=== PATIENT | female | born 1930 | race Caucasian/White ===

== ENCOUNTER 2016-07-30 14:23 | Outpatient (CLI) | payer MEDICARE, BC ==
--- NOTE | 2016-07-30 16:27 | RAD ---
LEFT KNEE AP VIEW ONLY RIGHT KNEE AP VIEW ONLY: 07/30/16 Single AP view of the left knee an the right knee is performed. No additional lateral or oblique vie ws were performed. Left total knee arthroplasty changes are noted without dislocation or periprosthetic fracture as ev aluated on this single AP view. 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 IMPRESSION: Limited AP one view only exam of the left knee showing a total knee arthroplasty without dislocation or periprosthetic fracture. Right knee joint space loss involving both the medial and lateral susi rtment of the right knee. POS: [facility]
== END 2016-07-30 14:24 | disposition home or self-care (01) ==
LOC: BURRAD 14:23
PROVIDERS: ATTEND Family Medicine
DX: M23.91 Unspecified internal derangement of right knee (principal); M25.562 Pain in left knee; Z96.652 Presence of left artificial knee joint
CPT/HCPCS: 73565

== ENCOUNTER 2016-09-11 13:39 | Outpatient (CLI) | payer MEDICARE, BC ==
--- NOTE | 2016-09-11 19:52 | RAD ---
ABDOMEN 09/11/16 Supine and erect films are compared with a 09/04/15 study done at [facility]. The gas pattern is nonspecific with gas seen in nondistended large and small bowel. I would note chuy t there seems to be a few more small bowel loops in the right flank than I would expect. 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 The amount of fecal material in the colon is moderate bu t there are no obstructive findings. No free air was seen. No calcifications of great concern were n oted. There is some calcification of the abdominal aorta itself. Degenerative changes are seen in ea ch hip joint. IMPRESSION: Mild constipation with nonspecific findings. See comments above. POS: HOME
== END 2016-09-11 13:40 | disposition home or self-care (01) ==
LOC: BURRAD 13:39
PROVIDERS: ATTEND Family Medicine
DX: K59.01 Slow transit constipation (principal); K57.30 Diverticulosis of large intestine without perforation or abscess without bleeding
CPT/HCPCS: 74020

== ENCOUNTER 2017-01-01 14:25 | Outpatient (CLI) | payer MEDICARE, BC ==
--- NOTE | 2017-01-01 17:08 | RAD ---
TWO VIEWS CHEST INDICATION: Shortness of breath. FINDINGS: No new consolidation, effusion, or pneumothorax. Cardiomediastinal silhouette is stable. There has been no significant interval change. IMPRESSION: Stable exam. POS: [facility]
--- NOTE | 2017-01-01 17:21 | RAD ---
LUMBAR SPINE TWO VIEWS 01/01/17 HISTORY: Low back pain. FINDINGS: There are five lumbar type vertebrae. Pedicles are intact. Vertebral body heights are maintained. Gr ramya I degenerative spondylolisthesis and disc space narrowing are apparent at the L4-5 level. Osteop hytosis is present throughout the vertebral bodies and facets. No acute fracture or dislocation are apparent. There are degenerative changes throughout the thoracic spine. There is calcification of th e arterial structures. IMPRESSION: 1. Lumbar spondylosis. No evidence of compression fracture. 2. Atherosclerosis. POS: [facility]
== END 2017-01-01 14:26 | disposition home or self-care (01) ==
LOC: BURRAD 14:25
PROVIDERS: ATTEND Family Medicine
DX: S22.000A Wedge compression fracture of unspecified thoracic vertebra, initial encounter for closed fracture (principal); R06.02 Shortness of breath; M54.6 Pain in thoracic spine; M47.816 Spondylosis without myelopathy or radiculopathy, lumbar region; I70.90 Unspecified atherosclerosis
CPT/HCPCS: 71020; 72080

== ENCOUNTER 2017-03-29 14:11 | Emergency (ER) | payer MEDICARE, BC ==
[2017-03-29 14:44] LABS: Bilirubin Negative (Negative); Blood, Urine Trace (Negative); Clarity Slightly Cloudy (Clear); Glucose, Urine (Dipstick) Negative (Negative); Leukocyte Small (Negative); Nitrite Negative (Negative); Protein, Urine (Dipstick) 30 mg/dL (Neg-Trace); Urobilinogen 0.2 mg/dL (0.2-1.0)
[2017-03-29 14:58] LABS: Bacteria/HPF 1+ HPF (None Seen); Crystals/HPF None Seen HPF (Negative); Hyaline Casts/LPF NONE SEEN LPF (0-3 Hyaline); Other Casts/LPF None Seen LPF (0-3 Hyaline); Oval Fat Bodies/HPF None Seen HPF (None Seen); RBC/HPF 0-3 HPF (0-3); Renal Epithelial None Seen HPF (0-3); Sperm/HPF None Seen HPF (None Seen); Squamous Epithelial 0-3 HPF (0-3); Transitional Epithelial NONE SEEN HPF (0-3); Trichomonas/HPF None Seen HPF (None Seen); Yeast-All Forms None Seen HPF (None Seen)
[2017-03-29] MEDS ORDERED: cefTRIAXone\\ROCEPHIN 1 GM VIAL ONE (15:13)
== END 2017-03-29 15:55 | disposition home or self-care (01) ==
LOC: BURERS 14:11
DX: N30.00 Acute cystitis without hematuria (principal); R19.7 Diarrhea, unspecified; M40.209 Unspecified kyphosis, site unspecified; M48.02 Spinal stenosis, cervical region; M19.90 Unspecified osteoarthritis, unspecified site; M06.9 Rheumatoid arthritis, unspecified; K21.9 Gastro-esophageal reflux disease without esophagitis; G62.9 Polyneuropathy, unspecified; Z87.891 Personal history of nicotine dependence
CPT/HCPCS: 81003; 81015; 87086; 96372; J0696

== ENCOUNTER 2017-04-21 18:34 | Emergency (ER) | payer MEDICARE, BC ==
[2017-04-21] MEDS ORDERED: Potassium Chloride 20 MEQ/100 ML PREMIX BAG ONE (19:14)
[2017-04-21 19:18] LABS: ALT (SGPT) 17 U/L (8-55); AST (SGOT) 38 U/L (5-34); Albumin 3.6 g/dL (3.4-4.8); Alkaline Phosphatase 63 U/L (40-150); Anion Gap 15 mmol/L (10-20); BUN (Urea Nitrogen) 16 mg/dL (9.8-20.1); Bilirubin, Total 0.3 mg/dL (0.2-1.2); Calc. Creatinine Clearance 0 mL/min (70-130); Calcium 9.7 mg/dL (7.8-10.44); Carbon Dioxide 32 mmol/L (23-31); Chloride 90 mmol/L (98-107); Estimated GFR-MDRD 48; Globulin 3.1 g/dL (2.4-3.5); Glucose 129 mg/dL (83-110); Protein, Total 6.7 g/dL (6.0-8.3); Sodium 134 mmol/L (136-145)
[2017-04-21 19:20] LABS: Troponin I 0.038 ng/mL (< 0.028)
[2017-04-21 19:22] LABS: Eosinophils 3 % (0-10); Hemoglobin 10.6 g/dL (12.0-16.0); Lymphocytes 42 % (21-51); MDiff Complete? YES; Mean Corpuscular HGB CONC 34.4 g/dL (32.0-36.0); Mean Corpuscular Hemoglobin 31.8 pg (27.0-31.0); Mean Corpuscular Volume 92.7 fl (81.0-99.0); Mean Platelet Volume 5.8 fL (7.4-10.4); Monocytes 11 % (0-10); Neutrophil 44 % (42-75); Platelet Count 320 thou/uL (130-400); RBC Distribution Width 11.3 % (11.5-14.5); Red Blood Cell (RBC) Count 3.32 mill/uL (4.20-5.40); White Blood Cell (WBC) Count 5.8 thou/uL (4.8-10.8)
[2017-04-21] MEDS ORDERED: Potassium Chloride 20 MEQ TAB ONE (19:26)
[2017-04-21 19:29] LABS: Bilirubin Negative (Negative); Blood, Urine Negative (Negative); Clarity Clear (Clear); Glucose, Urine (Dipstick) Negative (Negative); Leukocyte Trace (Negative); Nitrite Negative (Negative); Protein, Urine (Dipstick) Negative (Neg-Trace); Specific Gravity, Urine 1.015 (1.005-1.030); Urobilinogen 0.2 mg/dL (0.2-1.0); pH, Urine 7.5 (5.0-9.0)
[2017-04-21] MEDS ORDERED: NS 0.9% w/ 20 MEQ KCL 1,000 ML IV SCH (19:30)
[2017-04-21 19:32] LABS: Bacteria/HPF Rare-Few HPF (None Seen); RBC/HPF 0-3 HPF (0-3); Squamous Epithelial 0-3 HPF (0-3); WBC/HPF 0-3 HPF (0-3)
--- NOTE | 2017-04-21 19:45 | RAD ---
PORTABLE CHEST 04/21/17 An AP portable film at 1842 is compared with an 01/01/17 study. The heart is normal in size and the lungs are clear. No acute infiltrate or effusion was seen. Slight deviation of the trachea towards the right is due to crossing the aortic arch and due to her being t urned slightly. There are no effusions, IMPRESSION: No acute thoracic finding. POS: HOME
== END 2017-04-21 20:01 | disposition home or self-care (01) ==
LOC: BURERS 18:34
DX: E87.6 Hypokalemia (principal); E87.1 Hypo-osmolality and hyponatremia; M19.90 Unspecified osteoarthritis, unspecified site; M06.9 Rheumatoid arthritis, unspecified; I50.9 Heart failure, unspecified; K21.9 Gastro-esophageal reflux disease without esophagitis; Z87.891 Personal history of nicotine dependence; Z79.899 Other long term (current) drug therapy; Z79.891 Long term (current) use of opiate analgesic
CPT/HCPCS: 36415; 71045; 80053; 81003; 81015; 82553; 83880; 84484; 85025; 93005; 96365; J3480

== ENCOUNTER 2018-05-25 22:42 | Emergency (ER) | payer MEDICARE, BC ==
[2018-05-25] MEDS ORDERED: Cephalexin 500 MG CAP ONE (23:14)
[2018-05-25] MEDS ORDERED: Bacitracin Zinc 1 Packet ONE ×2 (23:15→23:36)
[2018-05-25] MEDS ORDERED: Adacel (T-DAP) 0.5 ML SYRINGE ONE (23:17)
--- NOTE | 2018-05-26 08:06 | RAD ---
RIGHT FOOT THREE VIEWS: Date: 05-25-18 FINDINGS: A fracture is present at the base of the proximal phalanx of the great toe. There is no significant d isplacement. The bones are osteoporotic. The remainder of the foot appeared intact. Hammertoe deformi ties are present. IMPRESSION: Fracture at the base of the proximal phalanx of the great toe. Code T POS: HOME
== END 2018-05-25 23:35 | disposition home or self-care (01) ==
LOC: BURERS 22:42
DX: S92.414A Nondisplaced fracture of proximal phalanx of right great toe, initial encounter for closed fracture (principal); K21.9 Gastro-esophageal reflux disease without esophagitis; I50.9 Heart failure, unspecified; Z87.891 Personal history of nicotine dependence; Z79.899 Other long term (current) drug therapy; W18.30XA Fall on same level, unspecified, initial encounter
CPT/HCPCS: 90471; 90715

== ENCOUNTER 2020-03-22 15:42 | Emergency (ER) | payer MEDICARE, BC ==
[2020-03-22] MEDS ORDERED: traMADol HCl 50 MG TAB ONE (17:04)
--- NOTE | 2020-03-22 17:49 | RAD ---
PORTABLE CHEST: 03/22/20 An AP view at 1630 is compared with a 04/21/17 study. The heart is normal in size. There is no vascul ar congestion or edema. No lobar infiltrate, effusion, or pneumothorax was seen. No gross fracture wa s identified, though subtle rib fractures would be missed IMPRESSION: No acute thoracic finding. POS: HOME
== END 2020-03-22 17:10 | disposition home or self-care (01) ==
LOC: BURERS 15:42
DX: S22.31XA Fracture of one rib, right side, initial encounter for closed fracture (principal); K21.9 Gastro-esophageal reflux disease without esophagitis; I50.9 Heart failure, unspecified; M06.9 Rheumatoid arthritis, unspecified; Z87.891 Personal history of nicotine dependence; Z79.899 Other long term (current) drug therapy; W19.XXXA Unspecified fall, initial encounter
CPT/HCPCS: 71045

== ENCOUNTER 2020-04-10 14:50 | Outpatient (CLI) | payer MEDICARE, BC ==
--- NOTE | 2020-04-10 18:57 | CT ---
CT OF THE BRAIN WITHOUT CONTRAST: 04/10/[address] was done for evaluation of headaches following remote trauma. There is no evidence of a subdural hematoma, acute or chronic. No intracranial bleeding, mass or sign of acute stroke was found. Atrophy is commensurate with age, as is ventricular size. There was no ed yuko. The skull is normal in appearance. IMPRESSION: No acute intracranial findings. No evidence of subdural hematoma. POS: HOME
== END 2020-04-10 14:51 | disposition home or self-care (01) ==
LOC: BURCT 14:50
PROVIDERS: ATTEND Family Medicine
DX: S09.90XA Unspecified injury of head, initial encounter (principal)
CPT/HCPCS: 70450

== ENCOUNTER 2020-05-14 16:37 | Outpatient (CLI) | payer MEDICARE, BC ==
[2020-05-14 16:52] LABS: #Basophils 0.1 thou/uL (0.0-0.2); #Eosinphils 0.1 thou/uL (0.0-0.7); #Lymphocytes 0.8 thou/uL (1.20-3.40); #Monocytes 0.3 thou/uL (0.11-0.59); #Neutrophils 4.3 thou/uL (1.40-6.50); %Basophils 1.2 % (0.0-1.0); %Eosinophils 1.9 % (0.0-10.0); %Lymphocytes 14.6 % (21.0-51.0); %Neutrophils 77.4 % (42.0-75.0); Hemoglobin 10.5 g/dL (12.0-16.0); Mean Corpuscular HGB CONC 32.7 g/dL (32.0-36.0); Mean Corpuscular Hemoglobin 31.1 pg (27.0-31.0); Mean Corpuscular Volume 95.1 fL (78.0-98.0); Mean Platelet Volume 8.3 fL (7.4-10.4); Platelet Count 126 thou/uL (130-400); RBC Distribution Width 12.8 % (11.5-14.5); Red Blood Cell (RBC) Count 3.39 mill/uL (4.20-5.40); White Blood Cell (WBC) Count 5.5 thou/uL (4.8-10.8)
[2020-05-14 17:06] LABS: ALT (SGPT) 17 U/L (8-55); AST (SGOT) 24 U/L (5-34); Albumin 3.9 g/dL (3.4-4.8); Alkaline Phosphatase 50 U/L (40-110); Anion Gap 15 mmol/L (10-20); BUN (Urea Nitrogen) 26 mg/dL (9.8-20.1); Bilirubin, Total 0.3 mg/dL (0.2-1.2); CRP (Inflammatory) 1.36 mg/dL (= or < 0.5); Calc. Creatinine Clearance 0 mL/min (70-130); Calcium 8.8 mg/dL (7.8-10.44); Carbon Dioxide 23 mmol/L (23-31); Chloride 107 mmol/L (98-107); Globulin 2.2 g/dL (2.4-3.5); Glucose 114 mg/dL (83-110); Potassium 4.9 mmol/L (3.5-5.1); Protein, Total 6.1 g/dL (5.8-8.1); Sodium 140 mmol/L (136-145)
== END 2020-05-14 16:38 | disposition home or self-care (01) ==
LOC: BURLAB 16:37
DX: M05.79 Rheumatoid arthritis with rheumatoid factor of multiple sites without organ or systems involvement (principal); M15.0 Primary generalized (osteo)arthritis; M35.3 Polymyalgia rheumatica; Z79.52 Long term (current) use of systemic steroids
CPT/HCPCS: 80053; 85025; 85652; 86140

== ENCOUNTER 2020-07-25 17:55 | Emergency (ER) | payer MEDICARE, BC ==
[2020-07-25 18:52] LABS: #Basophils 0.1 thou/uL (0.0-0.2); #Lymphocytes 1.4 thou/uL (1.20-3.40); #Monocytes 0.6 thou/uL (0.11-0.59); #Neutrophils 5.4 thou/uL (1.40-6.50); %Basophils 1.2 % (0.0-1.0); %Eosinophils 0.4 % (0.0-10.0); %Lymphocytes 18.6 % (21.0-51.0); %Monocytes 7.4 % (0.0-10.0); %Neutrophils 72.5 % (42.0-75.0); Hemoglobin 10.8 g/dL (12.0-16.0); Mean Corpuscular HGB CONC 35.9 g/dL (32.0-36.0); Mean Corpuscular Hemoglobin 33.2 pg (27.0-31.0); Mean Corpuscular Volume 92.7 fL (78.0-98.0); Mean Platelet Volume 5.2 fL (7.4-10.4); Platelet Count 290 thou/uL (130-400); RBC Distribution Width 12.6 % (11.5-14.5); Red Blood Cell (RBC) Count 3.26 mill/uL (4.20-5.40); White Blood Cell (WBC) Count 7.5 thou/uL (4.8-10.8)
[2020-07-25 19:39] LABS: ALT (SGPT) 13 U/L (8-55); AST (SGOT) 22 U/L (5-34); Alkaline Phosphatase 56 U/L (40-110); Anion Gap 15 mmol/L (10-20); BUN (Urea Nitrogen) 17 mg/dL (9.8-20.1); Bilirubin, Total 0.3 mg/dL (0.2-1.2); Calc. Creatinine Clearance 0 mL/min (70-130); Calcium 9.2 mg/dL (7.8-10.44); Carbon Dioxide 24 mmol/L (23-31); Chloride 98 mmol/L (98-107); Globulin 2.9 g/dL (2.4-3.5); Glucose 113 mg/dL (83-110); Potassium 4.2 mmol/L (3.5-5.1); Protein, Total 6.9 g/dL (5.8-8.1); Sodium 133 mmol/L (136-145)
[2020-07-25] MEDS ORDERED: predniSONE 20 MG TAB ONE (20:07)
== END 2020-07-25 20:25 | disposition home or self-care (01) ==
LOC: BURERS 17:55
DX: J20.9 Acute bronchitis, unspecified (principal); M06.9 Rheumatoid arthritis, unspecified; I50.9 Heart failure, unspecified; K21.9 Gastro-esophageal reflux disease without esophagitis; M19.90 Unspecified osteoarthritis, unspecified site; Z87.891 Personal history of nicotine dependence; Z79.899 Other long term (current) drug therapy
CPT/HCPCS: 71045; 80053; 83605; 83880; 84484; 85025; 87040; 93005; J7512; J7620

== ENCOUNTER 2020-10-03 21:04 | Emergency (ER) | payer MEDICARE, BC ==
[2020-10-03 21:32] LABS: #Basophils 0.1 thou/uL (0.0-0.2); #Lymphocytes 1.3 thou/uL (1.20-3.40); #Monocytes 0.5 thou/uL (0.11-0.59); %Basophils 1.8 % (0.0-1.0); %Eosinophils 0.5 % (0.0-10.0); %Lymphocytes 22.4 % (21.0-51.0); %Monocytes 8.6 % (0.0-10.0); %Neutrophils 66.7 % (42.0-75.0); Hemoglobin 10.7 g/dL (12.0-16.0); Mean Corpuscular HGB CONC 33.2 g/dL (32.0-36.0); Mean Corpuscular Hemoglobin 31.4 pg (27.0-31.0); Mean Corpuscular Volume 94.7 fL (78.0-98.0); Mean Platelet Volume 6.2 fL (7.4-10.4); Platelet Count 215 thou/uL (130-400); RBC Distribution Width 12.2 % (11.5-14.5); Red Blood Cell (RBC) Count 3.42 mill/uL (4.20-5.40); White Blood Cell (WBC) Count 5.9 thou/uL (4.8-10.8)
[2020-10-03 21:46] LABS: ALT (SGPT) 11 U/L (8-55); AST (SGOT) 24 U/L (5-34); Albumin 3.9 g/dL (3.4-4.8); Alkaline Phosphatase 51 U/L (40-110); Anion Gap 13 mmol/L (10-20); BUN (Urea Nitrogen) 14 mg/dL (9.8-20.1); Bilirubin, Total 0.3 mg/dL (0.2-1.2); Calc. Creatinine Clearance 0 mL/min (70-130); Carbon Dioxide 25 mmol/L (23-31); Chloride 97 mmol/L (98-107); Globulin 2.8 g/dL (2.4-3.5); Glucose 105 mg/dL (83-110); Potassium 4.4 mmol/L (3.5-5.1); Protein, Total 6.7 g/dL (5.8-8.1); Sodium 131 mmol/L (136-145)
[2020-10-03] MEDS ORDERED: Amlodipine 5 MG TAB ONE (22:19)
== END 2020-10-03 22:35 | disposition home or self-care (01) ==
LOC: BURERS 21:04
DX: I11.0 Hypertensive heart disease with heart failure (principal); I50.9 Heart failure, unspecified; K21.9 Gastro-esophageal reflux disease without esophagitis; M06.9 Rheumatoid arthritis, unspecified; Z87.891 Personal history of nicotine dependence; Z79.899 Other long term (current) drug therapy
CPT/HCPCS: 80053; 84443; 84484; 85025; 93005; 94760

== ENCOUNTER 2020-11-28 13:54 | Outpatient (CLI) | payer MEDICARE, BC ==
[2020-11-28 14:05] LABS: Bilirubin Negative (Negative); Blood, Urine Negative (Negative); Clarity Clear (Clear); Glucose, Urine (Dipstick) Negative (Negative); Ketone, Urine Negative (Negative); Leukocyte Negative (Negative); Nitrite Negative (Negative); Protein, Urine (Dipstick) Negative (Neg-Trace); Specific Gravity, Urine 1.015 (1.005-1.030); Urobilinogen 0.2 mg/dL (Less than 2)
[2020-11-28 14:08] LABS: Bacteria/HPF Rare-Few HPF (None Seen); RBC/HPF None Seen HPF (0-3); Squamous Epithelial 0-3 HPF (0-3); WBC/HPF None Seen HPF (0-3)
== END 2020-11-28 13:55 | disposition home or self-care (01) ==
LOC: BURLABSP 13:54
PROVIDERS: ATTEND Family Medicine
DX: R30.0 Dysuria (principal)
CPT/HCPCS: 81001

== ENCOUNTER 2020-12-03 10:55 | Outpatient (CLI) | payer MEDICARE, BC ==
[2020-12-03 11:25] LABS: ALT (SGPT) 15 U/L (8-55); AST (SGOT) 23 U/L (5-34); Alkaline Phosphatase 49 U/L (40-110); Anion Gap 16 mmol/L (10-20); BUN (Urea Nitrogen) 17 mg/dL (9.8-20.1); Bilirubin, Total 0.3 mg/dL (0.2-1.2); CRP (Inflammatory) Less than 0.50 mg/dL (= or < 0.5); Calc. Creatinine Clearance 0 mL/min (70-130); Calcium 9.3 mg/dL (7.8-10.44); Carbon Dioxide 23 mmol/L (23-31); Chloride 101 mmol/L (98-107); Globulin 2.2 g/dL (2.4-3.5); Glucose 108 mg/dL (83-110); Protein, Total 6.2 g/dL (5.8-8.1); Sodium 136 mmol/L (136-145)
[2020-12-03 11:44] LABS: Hemoglobin 11.3 g/dL (12.0-16.0); MDiff Complete? YES; Mean Corpuscular HGB CONC 33.8 g/dL (32.0-36.0); Mean Corpuscular Volume 94.6 fL (78.0-98.0); Mean Platelet Volume 5.8 fL (7.4-10.4); Platelet Count 294 thou/uL (130-400); RBC Distribution Width 12.4 % (11.5-14.5); Red Blood Cell (RBC) Count 3.55 mill/uL (4.20-5.40); White Blood Cell (WBC) Count 5.5 thou/uL (4.8-10.8)
[2020-12-03 11:45] LABS: Lymphocytes 45 % (21-51); Monocytes 7 % (0-10); Neutrophil 48 % (42-75); Platelet Morphology Comment Appears Adequate; RBC Morphology Normal
== END 2020-12-03 10:56 | disposition home or self-care (01) ==
LOC: BURLABSP 10:55
DX: Z51.81 Encounter for therapeutic drug level monitoring (principal); Z79.899 Other long term (current) drug therapy
CPT/HCPCS: 80053; 85025; 85652; 86140

== ENCOUNTER 2021-01-29 11:08 | Observation (INO) | payer MEDICARE, BC ==
[2021-01-29 11:39] LABS: #Basophils 0.1 thou/uL (0.0-0.2); #Eosinphils 0.1 thou/uL (0.0-0.7); #Lymphocytes 0.8 thou/uL (1.20-3.40); #Monocytes 0.7 thou/uL (0.11-0.59); #Neutrophils 5.4 thou/uL (1.40-6.50); %Eosinophils 0.9 % (0.0-10.0); %Lymphocytes 10.9 % (21.0-51.0); %Monocytes 9.8 % (0.0-10.0); %Neutrophils 77.5 % (42.0-75.0); Hemoglobin 12.2 g/dL (12.0-16.0); Mean Corpuscular HGB CONC 33.7 g/dL (32.0-36.0); Mean Corpuscular Hemoglobin 31.9 pg (27.0-31.0); Mean Corpuscular Volume 94.7 fL (78.0-98.0); Mean Platelet Volume 5.4 fL (7.4-10.4); Platelet Count 244 thou/uL (130-400); RBC Distribution Width 12.3 % (11.5-14.5); Red Blood Cell (RBC) Count 3.82 mill/uL (4.20-5.40)
[2021-01-29 11:41] LABS: Bilirubin Negative (Negative); Blood, Urine Trace (Negative); Clarity Clear (Clear); Glucose, Urine (Dipstick) Negative (Negative); Ketone, Urine Negative (Negative); Leukocyte Negative (Negative); Nitrite Negative (Negative); Protein, Urine (Dipstick) Negative (Neg-Trace); Specific Gravity, Urine 1.015 (1.005-1.030); Urobilinogen 0.2 mg/dL (Less than 2); pH, Urine 7.5 (5.0-9.0)
[2021-01-29] MEDS ORDERED: Ondansetron PF 4 MG/2 ML Vial ONE ×2 (11:44→12:38)
[2021-01-29 11:47] LABS: Bacteria/HPF Rare-Few HPF (None Seen); RBC/HPF 0-3 HPF (0-3); Squamous Epithelial 0-3 HPF (0-3); WBC/HPF 0-3 HPF (0-3)
[2021-01-29 11:54] LABS: ALT (SGPT) 16 U/L (8-55); AST (SGOT) 26 U/L (5-34); Albumin 4.1 g/dL (3.4-4.8); Alkaline Phosphatase 53 U/L (40-110); Anion Gap 17 mmol/L (10-20); BUN (Urea Nitrogen) 18 mg/dL (9.8-20.1); Bilirubin, Total 0.5 mg/dL (0.2-1.2); Calc. Creatinine Clearance 0 mL/min (70-130); Calcium 9.7 mg/dL (7.8-10.44); Carbon Dioxide 24 mmol/L (23-31); Chloride 101 mmol/L (98-107); Globulin 2.9 g/dL (2.4-3.5); Glucose 92 mg/dL (83-110); Lipase 36 U/L (8-78); Potassium 3.7 mmol/L (3.5-5.1); Sodium 138 mmol/L (136-145)
[2021-01-29] MEDS ORDERED: Famotidine In NaCl 20 mg/50 ml Premix Bag ONE (12:38)
[2021-01-29] MEDS ORDERED: Acetaminophen 500 MG TAB ONE (12:38)
[2021-01-29 14:34] LABS: SARS-CoV-2 NAA Rapid Test Not Detected (NotDetected)
[2021-01-29 16:52] VITALS: BMI 26.2
[2021-01-29] MEDS ORDERED: Ondansetron PF 4 MG/2 ML Vial IVP PRN (17:00)
[2021-01-29] MEDS ORDERED: Dextrose 5 %-0.45 % NaCl 1,000 ML IV SCH (17:00)
[2021-01-29] MEDS ORDERED: Ondansetron ODT 4 MG TAB SL PRN (17:00)
[2021-01-29] MEDS ORDERED: Acetaminophen 325 MG TAB PO PRN (17:47)
[2021-01-29] MEDS ORDERED: Baclofen 10 MG TAB PO PRN (17:47)
[2021-01-29] MEDS ORDERED: Bisacodyl 5 MG TAB PO PRN (17:49)
[2021-01-29] MEDS ORDERED: Bisacodyl 10 MG SUPP PR PRN (17:49)
[2021-01-29] MEDS ORDERED: Albuterol 200 PUFF (6.7GM INHALER) INH PRN (18:05)
[2021-01-29] MEDS: Sodium Chloride 0.9% 1,000 ML IV SCH (18:17)
[2021-01-29] MEDS ORDERED: Loratadine 10 MG TAB PO PRN (18:27)
[2021-01-29] MEDS: Acetaminophen 325 MG TAB PO PRN (19:59)
[2021-01-29] MEDS: rOPINIRole HCl 0.25 MG TAB PO SCH (20:00)
[2021-01-29] MEDS: Calcium Carbonate 600 MG + Vit D TAB PO SCH (21:00)
[2021-01-29] MEDS: Cholestyramine/Aspartame 4 gm Packet PO SCH (21:00)
[2021-01-30] MEDS: Acetaminophen 325 MG TAB PO PRN ×2 (00:51→21:21)
[2021-01-30 05:35] LABS: Anion Gap 18 mmol/L (10-20)
[2021-01-30 05:43] LABS: #Basophils 0.1 thou/uL (0.0-0.2); #Monocytes 0.8 thou/uL (0.11-0.59); %Basophils 1.9 % (0.0-1.0); %Eosinophils 0.6 % (0.0-10.0); %Lymphocytes 14.4 % (21.0-51.0); %Monocytes 11.8 % (0.0-10.0); %Neutrophils 71.3 % (42.0-75.0); Hemoglobin 10.7 g/dL (12.0-16.0); Mean Corpuscular HGB CONC 34.2 g/dL (32.0-36.0); Mean Corpuscular Hemoglobin 32.3 pg (27.0-31.0); Mean Corpuscular Volume 94.5 fL (78.0-98.0); Mean Platelet Volume 6.7 fL (7.4-10.4); Platelet Count 161 thou/uL (130-400); RBC Distribution Width 12.3 % (11.5-14.5); Red Blood Cell (RBC) Count 3.32 mill/uL (4.20-5.40); White Blood Cell (WBC) Count 7.1 thou/uL (4.8-10.8)
[2021-01-30 06:39] LABS: ALT (SGPT) 15 U/L (8-55); AST (SGOT) 26 U/L (5-34); Albumin 3.4 g/dL (3.4-4.8); Alkaline Phosphatase 46 U/L (40-110); BUN (Urea Nitrogen) 23 mg/dL (9.8-20.1); Bilirubin, Total 0.5 mg/dL (0.2-1.2); Calc. Creatinine Clearance 33 mL/min (70-130); Carbon Dioxide 17 mmol/L (23-31); Chloride 106 mmol/L (98-107); Globulin 2.5 g/dL (2.4-3.5); Glucose 71 mg/dL (83-110); Potassium 3.8 mmol/L (3.5-5.1); Protein, Total 5.9 g/dL (5.8-8.1); Sodium 137 mmol/L (136-145)
[2021-01-30] MEDS ORDERED: Cepastat Lozenges 1 LOZ PO PRN (07:45)
[2021-01-30] MEDS ORDERED: Famotidine 20 MG TAB PO SCH (09:00)
[2021-01-30] MEDS: Amlodipine 5 MG TAB PO SCH (09:00)
[2021-01-30] MEDS: Multivitamin W/ Minerals 1 TAB PO SCH (09:53)
[2021-01-30] MEDS: Enoxaparin Sodium 30 MG/0.3 ML SYRINGE SC SCH (09:53)
[2021-01-30] MEDS: Calcium Carbonate 600 MG + Vit D TAB PO SCH ×2 (09:53→21:20)
[2021-01-30] MEDS: Floranex 1 GM Packet PO SCH (09:53)
[2021-01-30] MEDS: Sodium Chloride 0.9% 1,000 ML IV SCH (09:54)
[2021-01-30] MEDS ORDERED: Nitroglycerin 0.4 MG TAB (25 Tab Bottle) SL PRN (14:18)
[2021-01-30] MEDS: Gabapentin 100 MG CAP PO SCH ×2 (16:18→21:19)
[2021-01-30] MEDS ORDERED: Lorazepam 0.5 MG TAB PO SCH (21:00)
[2021-01-30] MEDS ORDERED: Mirtazapine 15 MG TAB PO SCH (21:00)
[2021-01-30] MEDS: Potassium Chloride 20 MEQ TAB PO SCH (21:20)
[2021-01-30] MEDS: rOPINIRole HCl 0.25 MG TAB PO SCH (21:20)
[2021-01-30] MEDS: Furosemide 40 MG TAB PO SCH (21:20)
[2021-01-30] MEDS: Cholestyramine/Aspartame 4 gm Packet PO SCH ×2 (21:21→21:29)
[2021-01-31] MEDS: Sodium Chloride 0.9% 1,000 ML IV SCH (01:25)
[2021-01-31 04:08] VITALS: BP 158/71; TEMP 98.5
[2021-01-31] MEDS ORDERED: Liothyronine Sodium 5 MCG TAB PO SCH ×2 (06:00→09:00)
[2021-01-31] MEDS: Acetaminophen 325 MG TAB PO PRN (08:44)
[2021-01-31] MEDS: Gabapentin 100 MG CAP PO SCH (08:45)
[2021-01-31] MEDS: Enoxaparin Sodium 30 MG/0.3 ML SYRINGE SC SCH (08:47)
[2021-01-31] MEDS: Calcium Carbonate 600 MG + Vit D TAB PO SCH (08:48)
[2021-01-31] MEDS: Potassium Chloride 20 MEQ TAB PO SCH (08:48)
[2021-01-31] MEDS: Multivitamin W/ Minerals 1 TAB PO SCH (08:48)
[2021-01-31] MEDS: Floranex 1 GM Packet PO SCH (08:49)
[2021-01-31] MEDS: Furosemide 40 MG TAB PO SCH (08:49)
[2021-01-31] MEDS: Amlodipine 5 MG TAB PO SCH (08:59)
[2021-01-31] MEDS ORDERED: predniSONE 5 MG TAB PO SCH (09:00)
[2021-01-31] MEDS ORDERED: Magnesium Oxide 400 MG TAB PO SCH (09:00)
[2021-01-31] MEDS ORDERED: Hydroxychloroquine Sulfate 200 MG TAB PO SCH (09:00)
[2021-01-31] MEDS ORDERED: Leflunomide 10 mg Tablet PO SCH (09:00)
[2021-02-01] MEDS ORDERED: FLU VACC QS2021-22(65YR UP)/PF 240 MCG/0.7 ML SYRINGE IM ONE (17:15)
== END 2021-01-31 15:05 | disposition swing bed (61) ==
LOC: BURERS 11:08 → BURMED 13:45
PROVIDERS: ADMIT Family Medicine; ATTEND Family Medicine
DX: R11.2 Nausea with vomiting, unspecified (principal); R50.9 Fever, unspecified; M19.90 Unspecified osteoarthritis, unspecified site; E03.9 Hypothyroidism, unspecified; I25.10 Atherosclerotic heart disease of native coronary artery without angina pectoris; K21.9 Gastro-esophageal reflux disease without esophagitis; E78.5 Hyperlipidemia, unspecified; Z87.891 Personal history of nicotine dependence; Z79.52 Long term (current) use of systemic steroids; Z79.899 Other long term (current) drug therapy; Z88.1 Allergy status to other antibiotic agents; Z88.2 Allergy status to sulfonamides; Z20.822 Contact with and (suspected) exposure to COVID-19
CPT/HCPCS: 0241U; 36415; 71045; 80053; 81003; 81015; 83605; 83690; 85025; 87040; 96365; 96367; 96372; 96375; 96376; G0378; J1650; J1956; J2405; J7050; J7512; Q0162

== ENCOUNTER 2021-01-31 15:05 | Inpatient (IN) | payer MEDICARE, BC ==
[2021-01-31 16:15] VITALS: BMI 27.4
[2021-01-31] MEDS ORDERED: Ondansetron ODT 4 MG TAB PO PRN (16:26)
[2021-01-31] MEDS ORDERED: Ondansetron PF 4 MG/2 ML Vial IVP PRN ×2 (16:27→20:38)
[2021-01-31] MEDS ORDERED: Calcium Carbonate 500 MG ChewTAB PO PRN (16:27)
[2021-01-31] MEDS ORDERED: Senokot S 8.6-50 MG TAB PO PRN (16:28)
[2021-01-31] MEDS ORDERED: Bisacodyl 5 MG TAB PO PRN ×2 (16:29→20:38)
[2021-01-31] MEDS ORDERED: FLU VACC QS2021-22(65YR UP)/PF 240 MCG/0.7 ML SYRINGE IM ONE (17:30)
[2021-01-31] MEDS ORDERED: Bisacodyl 10 MG SUPP PR PRN (20:38)
[2021-01-31] MEDS ORDERED: Acetaminophen 325 MG TAB PO PRN ×2 (20:38)
[2021-01-31] MEDS ORDERED: Nitroglycerin 0.4 MG TAB (25 Tab Bottle) SL PRN (20:38)
[2021-01-31] MEDS ORDERED: Cepastat Lozenges 1 LOZ PO PRN (20:38)
[2021-01-31] MEDS ORDERED: Ondansetron ODT 4 MG TAB SL PRN (20:38)
[2021-01-31] MEDS ORDERED: Non-Formulary Item 1 EACH (Gabapentin [Gabapentin] 800 MG Tablet) PO SCH (21:00)
[2021-01-31] MEDS ORDERED: Loratadine 10 MG TAB PO PRN (21:17)
[2021-01-31] MEDS ORDERED: Albuterol 200 PUFF (6.7GM INHALER) INH PRN (21:30)
[2021-01-31] MEDS ORDERED: Gabapentin 100 MG CAP PO SCH (21:45)
[2021-01-31] MEDS ORDERED: Cholestyramine/Aspartame 4 gm Packet PO SCH (21:45)
[2021-01-31] MEDS: Gabapentin 300 MG CAP PO SCH ×2 (21:46→22:20)
[2021-01-31] MEDS: Furosemide 40 MG TAB PO SCH ×2 (21:47→22:20)
[2021-01-31] MEDS: Mirtazapine 15 MG TAB PO SCH (21:47)
[2021-01-31] MEDS: Lorazepam 0.5 MG TAB PO SCH (21:47)
[2021-01-31] MEDS: Baclofen 10 MG TAB PO PRN (22:21)
[2021-02-01] MEDS: Furosemide 40 MG TAB PO SCH ×2 (06:01→14:24)
[2021-02-01] MEDS: Liothyronine Sodium 5 MCG TAB PO SCH (06:02)
[2021-02-01] MEDS ORDERED: Liothyronine Sodium 5 MCG TAB PO SCH (09:00)
[2021-02-01] MEDS ORDERED: Gabapentin 100 MG CAP PO SCH (09:00)
[2021-02-01] MEDS ORDERED: Gabapentin 300 MG CAP PO SCH (09:00)
[2021-02-01] MEDS ORDERED: Enoxaparin Sodium 30 MG/0.3 ML SYRINGE SC SCH (09:00)
[2021-02-01] MEDS: Gabapentin 300 MG CAP PO SCH ×3 (09:08→19:23)
[2021-02-01] MEDS: Gabapentin 100 MG CAP PO SCH ×3 (09:09→19:24)
[2021-02-01] MEDS: Leflunomide 10 mg Tablet PO SCH (09:10)
[2021-02-01] MEDS: Enoxaparin Sodium 30 MG/0.3 ML SYRINGE SC SCH (09:11)
[2021-02-01] MEDS: predniSONE 5 MG TAB PO SCH (09:11)
[2021-02-01] MEDS: Saccharomyces boulardii 250 MG CAP PO SCH (09:11)
[2021-02-01] MEDS: Multivitamin W/ Minerals 1 TAB PO SCH (09:11)
[2021-02-01] MEDS: Magnesium Oxide 400 MG TAB PO SCH (09:11)
[2021-02-01] MEDS: Hydroxychloroquine Sulfate 200 MG TAB PO SCH (09:12)
[2021-02-01] MEDS: Amlodipine 5 MG TAB PO SCH (09:12)
[2021-02-01] MEDS: Calcium Carbonate 600 MG + Vit D TAB PO SCH ×2 (09:12→20:29)
[2021-02-01] MEDS: Potassium Chloride 20 MEQ TAB PO SCH ×2 (09:13→20:30)
[2021-02-01] MEDS: Acetaminophen 325 MG TAB PO PRN (14:25)
[2021-02-01] MEDS: Cholestyramine/Aspartame 4 gm Packet PO SCH (20:27)
[2021-02-01] MEDS: rOPINIRole HCl 0.25 MG TAB PO SCH (20:28)
[2021-02-01] MEDS: Baclofen 10 MG TAB PO PRN (20:30)
[2021-02-01] MEDS: Mirtazapine 15 MG TAB PO SCH (20:31)
[2021-02-01] MEDS: Lorazepam 0.5 MG TAB PO SCH (20:32)
[2021-02-02] MEDS: Furosemide 40 MG TAB PO SCH ×2 (05:23→14:04)
[2021-02-02] MEDS: Liothyronine Sodium 5 MCG TAB PO SCH (05:23)
[2021-02-02] MEDS: Hydroxychloroquine Sulfate 200 MG TAB PO SCH (09:33)
[2021-02-02] MEDS: Enoxaparin Sodium 30 MG/0.3 ML SYRINGE SC SCH (09:33)
[2021-02-02] MEDS: Gabapentin 300 MG CAP PO SCH ×3 (09:34→16:48)
[2021-02-02] MEDS: Gabapentin 100 MG CAP PO SCH ×3 (09:35→16:50)
[2021-02-02] MEDS: Leflunomide 10 mg Tablet PO SCH (09:36)
[2021-02-02] MEDS: Multivitamin W/ Minerals 1 TAB PO SCH (09:37)
[2021-02-02] MEDS: Calcium Carbonate 600 MG + Vit D TAB PO SCH ×2 (09:37→20:14)
[2021-02-02] MEDS: predniSONE 5 MG TAB PO SCH (09:39)
[2021-02-02] MEDS: Potassium Chloride 20 MEQ TAB PO SCH ×2 (09:39→20:14)
[2021-02-02] MEDS: Saccharomyces boulardii 250 MG CAP PO SCH (09:39)
[2021-02-02] MEDS: Amlodipine 5 MG TAB PO SCH (09:51)
[2021-02-02] MEDS: Magnesium Oxide 400 MG TAB PO SCH (09:52)
[2021-02-02] MEDS ORDERED: FLU VACC QS2021-22(65YR UP)/PF 240 MCG/0.7 ML SYRINGE IM ONE (13:45)
[2021-02-02] MEDS: Acetaminophen 325 MG TAB PO PRN (14:15)
[2021-02-02] MEDS: Baclofen 10 MG TAB PO PRN (18:22)
[2021-02-02] MEDS: Mirtazapine 15 MG TAB PO SCH (20:14)
[2021-02-02] MEDS: Lorazepam 0.5 MG TAB PO SCH ×2 (20:15→20:17)
[2021-02-02] MEDS: rOPINIRole HCl 0.25 MG TAB PO SCH (20:15)
[2021-02-02] MEDS: Cholestyramine/Aspartame 4 gm Packet PO SCH (20:15)
[2021-02-03] MEDS: Furosemide 40 MG TAB PO SCH ×2 (05:21→13:03)
[2021-02-03] MEDS: Liothyronine Sodium 5 MCG TAB PO SCH (05:21)
[2021-02-03] MEDS: Enoxaparin Sodium 30 MG/0.3 ML SYRINGE SC SCH (08:33)
[2021-02-03] MEDS: Multivitamin W/ Minerals 1 TAB PO SCH (08:34)
[2021-02-03] MEDS: Magnesium Oxide 400 MG TAB PO SCH (08:34)
[2021-02-03] MEDS: Gabapentin 100 MG CAP PO SCH ×3 (08:35→17:25)
[2021-02-03] MEDS: Leflunomide 10 mg Tablet PO SCH (08:35)
[2021-02-03] MEDS: Saccharomyces boulardii 250 MG CAP PO SCH (08:36)
[2021-02-03] MEDS: Hydroxychloroquine Sulfate 200 MG TAB PO SCH (08:36)
[2021-02-03] MEDS: Calcium Carbonate 600 MG + Vit D TAB PO SCH ×2 (08:38→20:17)
[2021-02-03] MEDS: Gabapentin 300 MG CAP PO SCH ×3 (08:38→17:26)
[2021-02-03] MEDS: Potassium Chloride 20 MEQ TAB PO SCH ×2 (08:41→20:21)
[2021-02-03] MEDS: predniSONE 5 MG TAB PO SCH (08:41)
[2021-02-03] MEDS: Amlodipine 5 MG TAB PO SCH (08:42)
[2021-02-03] MEDS: rOPINIRole HCl 0.25 MG TAB PO SCH (20:15)
[2021-02-03] MEDS: Lorazepam 0.5 MG TAB PO SCH (20:18)
[2021-02-03] MEDS: Mirtazapine 15 MG TAB PO SCH (20:19)
[2021-02-03] MEDS: Cholestyramine/Aspartame 4 gm Packet PO SCH (20:20)
[2021-02-03] MEDS: Baclofen 10 MG TAB PO PRN (20:32)
[2021-02-04] MEDS: Liothyronine Sodium 5 MCG TAB PO SCH (05:37)
[2021-02-04] MEDS: Furosemide 40 MG TAB PO SCH ×3 (05:37→13:31)
[2021-02-04] MEDS: Enoxaparin Sodium 30 MG/0.3 ML SYRINGE SC SCH (09:30)
[2021-02-04] MEDS: Gabapentin 300 MG CAP PO SCH ×3 (09:30→17:42)
[2021-02-04] MEDS: Hydroxychloroquine Sulfate 200 MG TAB PO SCH (09:32)
[2021-02-04] MEDS: Leflunomide 10 mg Tablet PO SCH (09:32)
[2021-02-04] MEDS: Gabapentin 100 MG CAP PO SCH ×3 (09:32→17:41)
[2021-02-04] MEDS: Magnesium Oxide 400 MG TAB PO SCH (09:33)
[2021-02-04] MEDS: Amlodipine 5 MG TAB PO SCH (09:33)
[2021-02-04] MEDS: Saccharomyces boulardii 250 MG CAP PO SCH (09:33)
[2021-02-04] MEDS: predniSONE 5 MG TAB PO SCH (09:33)
[2021-02-04] MEDS: Calcium Carbonate 600 MG + Vit D TAB PO SCH ×2 (09:33→20:51)
[2021-02-04] MEDS: Multivitamin W/ Minerals 1 TAB PO SCH (09:33)
[2021-02-04] MEDS: Potassium Chloride 20 MEQ TAB PO SCH ×2 (09:33→20:50)
[2021-02-04] MEDS: Acetaminophen 325 MG TAB PO PRN (09:40)
[2021-02-04] MEDS: Mirtazapine 15 MG TAB PO SCH (20:47)
[2021-02-04] MEDS: rOPINIRole HCl 0.25 MG TAB PO SCH (20:48)
[2021-02-04] MEDS: Cholestyramine/Aspartame 4 gm Packet PO SCH (20:51)
[2021-02-04] MEDS: Lorazepam 0.5 MG TAB PO SCH (20:51)
[2021-02-05] MEDS: Furosemide 40 MG TAB PO SCH ×2 (05:41→14:08)
[2021-02-05] MEDS: Liothyronine Sodium 5 MCG TAB PO SCH (05:41)
[2021-02-05] MEDS: Potassium Chloride 20 MEQ TAB PO SCH ×2 (08:12→20:16)
[2021-02-05] MEDS: predniSONE 5 MG TAB PO SCH (08:12)
[2021-02-05] MEDS: Amlodipine 5 MG TAB PO SCH (08:12)
[2021-02-05] MEDS: Hydroxychloroquine Sulfate 200 MG TAB PO SCH (08:12)
[2021-02-05] MEDS: Saccharomyces boulardii 250 MG CAP PO SCH (08:12)
[2021-02-05] MEDS: Calcium Carbonate 600 MG + Vit D TAB PO SCH ×3 (08:12→20:20)
[2021-02-05] MEDS: Magnesium Oxide 400 MG TAB PO SCH (08:12)
[2021-02-05] MEDS: Gabapentin 100 MG CAP PO SCH ×3 (08:13→17:44)
[2021-02-05] MEDS: Gabapentin 300 MG CAP PO SCH ×3 (08:13→17:45)
[2021-02-05] MEDS: Leflunomide 10 mg Tablet PO SCH (08:13)
[2021-02-05] MEDS: Acetaminophen 325 MG TAB PO PRN (08:14)
[2021-02-05] MEDS: Enoxaparin Sodium 30 MG/0.3 ML SYRINGE SC SCH (08:14)
[2021-02-05] MEDS: Multivitamin W/ Minerals 1 TAB PO SCH (08:14)
[2021-02-05] MEDS: RHAMNOSUS GG PO SCH ×3 (15:55→15:57)
[2021-02-05] MEDS: INULIN PO SCH ×3 (15:55→15:57)
[2021-02-05] MEDS: rOPINIRole HCl 0.25 MG TAB PO SCH (20:15)
[2021-02-05] MEDS: Baclofen 10 MG TAB PO PRN (20:15)
[2021-02-05] MEDS: Mirtazapine 15 MG TAB PO SCH (20:17)
[2021-02-05] MEDS: Lorazepam 0.5 MG TAB PO SCH (20:17)
[2021-02-05] MEDS: Cholestyramine/Aspartame 4 gm Packet PO SCH (20:17)
[2021-02-06] MEDS: Liothyronine Sodium 5 MCG TAB PO SCH (05:34)
[2021-02-06] MEDS: Furosemide 40 MG TAB PO SCH (05:34)
[2021-02-06] MEDS: Hydroxychloroquine Sulfate 200 MG TAB PO SCH (09:54)
[2021-02-06] MEDS: Gabapentin 100 MG CAP PO SCH (09:54)
[2021-02-06] MEDS: Leflunomide 10 mg Tablet PO SCH (09:54)
[2021-02-06] MEDS: Magnesium Oxide 400 MG TAB PO SCH (09:54)
[2021-02-06] MEDS: Amlodipine 5 MG TAB PO SCH (09:55)
[2021-02-06] MEDS: Calcium Carbonate 600 MG + Vit D TAB PO SCH (09:55)
[2021-02-06] MEDS: Gabapentin 300 MG CAP PO SCH (09:55)
[2021-02-06] MEDS: Multivitamin W/ Minerals 1 TAB PO SCH (09:55)
[2021-02-06] MEDS: Saccharomyces boulardii 250 MG CAP PO SCH (09:55)
[2021-02-06] MEDS: Potassium Chloride 20 MEQ TAB PO SCH (09:56)
[2021-02-06] MEDS: predniSONE 5 MG TAB PO SCH (09:56)
[2021-02-06] MEDS: Enoxaparin Sodium 30 MG/0.3 ML SYRINGE SC SCH (09:57)
[2021-02-06] MEDS ORDERED: Iopamidol 370 76% 100 ML VIAL IV ONE (12:02)
[2021-02-06 12:38] VITALS: BP 136/62; TEMP 99.1
== END 2021-02-06 12:08 | disposition home health service (06) | DRG 948 ==
LOC: BURMED 15:05
PROVIDERS: ADMIT Family Medicine; ATTEND Family Medicine
DX: R53.81 Other malaise (principal); K52.1 Toxic gastroenteritis and colitis; E86.0 Dehydration; T50.B95A Adverse effect of other viral vaccines, initial encounter; M19.90 Unspecified osteoarthritis, unspecified site; I25.10 Atherosclerotic heart disease of native coronary artery without angina pectoris; F41.9 Anxiety disorder, unspecified; K21.9 Gastro-esophageal reflux disease without esophagitis; E03.9 Hypothyroidism, unspecified; I10 Essential (primary) hypertension; R10.9 Unspecified abdominal pain
CPT/HCPCS: 74177; 90471; 90662; G0008; J1650; J7512; Q9967

== ENCOUNTER 2021-04-18 13:50 | Emergency (ER) | payer MEDICARE, BC ==
[2021-04-18] MEDS ORDERED: Dexamethasone 4 MG TAB ONE (14:43)
[2021-04-18] MEDS ORDERED: Benzonatate 100 MG CAP ONE (14:43)
== END 2021-04-18 14:35 | disposition home or self-care (01) ==
LOC: BURERS 13:50
DX: J06.9 Acute upper respiratory infection, unspecified (principal); M19.90 Unspecified osteoarthritis, unspecified site; K21.9 Gastro-esophageal reflux disease without esophagitis; E78.5 Hyperlipidemia, unspecified; Z87.891 Personal history of nicotine dependence
CPT/HCPCS: 99283; J8540